=== PATIENT | male | born 1970 | race Caucasian/White ===

== ENCOUNTER → 2021-10-26 11:04 | Outpatient (CLI) | payer OTHER, SELFPAY ==
[2021-10-26 11:30] LABS: COVID19 -Nasal RAPID Negative (Negative)
== END ==
PROVIDERS: Visit Provider Family Medicine Sleep Medicine
DX: Z20.822 Contact with and (suspected) exposure to COVID-19 (principal)
CPT/HCPCS: 87635

== ENCOUNTER → 2021-10-26 14:14 | Outpatient (CLI) | payer OTHER, SELFPAY ==
--- NOTE | 2021-10-26 | DI.NM.S_ITS ---
PROCEDURE: NM EXERCISE TREADMILL NON NUC COMPARISON: None. INDICATIONS: Family history of ischemic heart disease FINDINGS: Rest ECG sinus rhythm. John protocol 12:06, peak HR 182 bpm (107% peak predicted), max BP 194/98, 12.8 METS, MISAEL -25%. Stress ECG sinus tachycardia, no ST segment changes, ectopy or arrhythmia. IMPRESSION: 1. No evidence of exercise-induced ischemia or arrhythmia by ECG criteria. 2. Normal blood pressure response to exercise. 3. Very good exercise capacity. Dictated by: Qi Da Silva D.O. on 10/26/2021 at 17:05 Approved by: Qi Da Silva M.D. on 10/26/2021 at 17:08
== END ==
PROVIDERS: PCP Family Medicine; Referring Provider Internal Medicine Cardiovascular Disease; Visit Provider Internal Medicine Cardiovascular Disease
DX: Z13.6 Encounter for screening for cardiovascular disorders (principal); Z82.49 Family history of ischemic heart disease and other diseases of the circulatory system; Z20.822 Contact with and (suspected) exposure to COVID-19
CPT/HCPCS: 87635; 93017; C9803